=== PATIENT | male | born 1980 | race Caucasian/White ===

== ENCOUNTER → 2020-09-19 09:50 | Outpatient (CLI) | payer OTHER, SELFPAY ==
[2020-09-19 11:06] LABS: Cholesterol 191 mg/dL (140-199); HDL Cholesterol 50 mg/dL (40-60); LDL Cholesterol Calculated 127 mg/dL (<100); Triglycerides 68 mg/dL (35-150)
== END ==
PROVIDERS: PCP Student in an Organized Health Care Education/Training Program; Referring Provider Student in an Organized Health Care Education/Training Program; Visit Provider Student in an Organized Health Care Education/Training Program
DX: Z13.220 Encounter for screening for lipoid disorders (principal)
CPT/HCPCS: 36415; 80061

== ENCOUNTER → 2021-04-10 14:41 | Outpatient (CLI) | payer OTHER, SELFPAY ==
[2021-04-10] MEDS: COVID-19 VACC, Ad26(JANSSEN)/PF 0.5 ML IM (14:50)
== END ==
PROVIDERS: PCP Student in an Organized Health Care Education/Training Program; Visit Provider Internal Medicine
DX: Z23 Encounter for immunization (principal)
CPT/HCPCS: 0031A; 91303